=== PATIENT | female | born 1980 | race Caucasian/White ===

== ENCOUNTER 2018-11-18 16:53 | Outpatient (CLI) | payer BC ==
[2018-11-18] VITALS (30 sets, daily range): BP systolic 140–190; BP diastolic 73–105; PULSE 76–100; TEMP 99
[~2018-11-18] VITALS: Ht 165.1 cm; Wt 109.1 kg
--- NOTE | 2018-11-18 17:00 | NUR ---
Patient presents to unit with complaints of elevated blood pressure and severe neck pain, denies any visual changes, epigastric pain or upper right quadrant pain, denies leaking of fluid or bleeding. Patient denies contractions. Drinking apporpriately and eating meals. Patient assesment completed, vitals obtained, and placed on monitors. notified of paitnet arrival and orders recived. Lab at bedside to obtain draws. Will monitor with serial blood pressures and notify. 1730- Blood pressure readings noted with and reviewed. Update on neck pain isssues, new orders recieved. Will continue to monitor. Flexeril 10mg given as ordered at 1740. 1800- Labs reviewed with Dr. Chavarria, updated on current blood pressure readindgs and rating of pain level by patient. New orders recived for percocet 1 time dose of 5mg. And one dose of 100mg labetlol given now with script sent to pharmacy reported. Patient updated on plan of care and agreeable. Will continue to monitorl 1814-Report given to CHARLES Dailey to continue to monitor post medication administration.
[2018-11-18] MEDS ORDERED: NEXIUM 40MG40 MG PO (17:19)
[2018-11-18] MEDS ORDERED: PRENATAL MVI (17:20)
[2018-11-18 17:35] LABS: HEMATOCRIT 37.8 % (37.0-47.0); HEMOGLOBIN 12.8 g/dl (12.5-16.0); MEAN CELL VOLUME 93 fl (80.0-100.0); MEAN CORPUSCULAR HEMOGLOBIN 32 pg (27.0-31.0); MEAN CORPUSCULAR HGB CONC 34 g/dl (33.0-37.0); MEAN PLATELET VOLUME 10.8 fl (7.4-10.4); PLATELET COUNT 180 K/mm3 (130-400); RED BLOOD COUNT 4.06 M/mm3 (4.10-5.30); REDCELL DISTRIBUTION WIDTH-CV 12.5 % (11.5-14.5)
[2018-11-18 17:58] LABS: ALBUMIN 2.9 gm/dL (3.5-5.0); BILIRUBIN,TOTAL 0.2 mg/dL (0.0-1.0); CALCIUM 9.4 mg/dL (8.4-10.2); CREATININE, serum 0.74 (0.52-1.25)
--- NOTE | 2018-11-18 20:00 | NUR ---
1829- Report from CHARLES Self. Patient here with complaints of neck pain and high blood pressures at home. See eMAR for medications given. Patient still complains of intense neck pain and BP currently 178/84. aware of increased BP. Orders to discharge in 1 hour if BP stable and pain is decreased. Rx for Labetalol 100mg BID sent to [facility] by CHARLES Self. RN's at bedside to reposition patient to RL and then WR. FHR difficult to trace due to maternal position and size. BP remains 170/100's at this time. 1854- See Physician Notification. 1899- Labetalol 100mg x1 given. See eMAR. 1929- Patient reports neck pain is lessening and she is feeling more comfortable. 1949- See Physician Notification. 1954- Procardia XL 30mg x1 given. See eMAR. 1999- Patient states her neck pain in more controlled. 2017- See Physician Notification. Discharge orders given to CHARLES Rahman. 2029- Discharge instructions discussed at length with patient and spouse. Instructed them to pick and shovel man Rx for Labetalol from pharmacy and to follow up in the office for BP check on Thursday. Questions asked and answered. Patient to call with any questions and/or concerns. 2044- Patient and spouse ambulatory off unit.
[2018-11-18] MEDS ORDERED: TRANDATE 100MG100 MG PO (20:27)
== END 2018-11-18 20:45 | disposition home or self-care (01) ==
LOC: LDRO 16:53 → LDR 16:54 → LDRO 20:45
PROVIDERS: Obstetrics & Gynecology
DX: O99.413 Diseases of the circulatory system complicating pregnancy, third trimester (principal); Z3A.37 37 weeks gestation of pregnancy
CPT/HCPCS: OP

== ENCOUNTER 2018-11-22 15:42 | Inpatient (IN) | payer BC ==
[~2018-11-22] VITALS: Ht 170.2 cm; Wt 109.1 kg
[~2018-11-22 15:42] MED LIST: NEXIUM 40MG40 MG PO; PRENATAL MVI; TRANDATE 100MG100 MG PO
[2018-11-22 20:45] VITALS: BP 181/104; PULSE 102; TEMP 98.1
[2018-11-22 21:00] VITALS: BP 176/94; PULSE 94
[2018-11-22 22:00] VITALS: BP 160/90; PULSE 91
--- NOTE | 2018-11-22 22:00 | NUR ---
2157- PROCARDIA XL 60MG PO GIVEN AT THIS TIME PER DR. MUHAMMAD'S ORDERS.
[2018-11-22 22:07] LABS: BASO % 0.3 % (0.0-2.0); EOS # 0.1 (0.0-0.7); EOS % 0.7 % (0-4.0); GRAN # 6.8 (1.4-6.5); GRAN % 75.5 % (42.2-75.2); HEMOGLOBIN 12.5 g/dl (12.5-16.0); LYMPH # 1.6 (1.2-3.4); LYMPH % 17.5 % (20.0-51.0); MEAN CELL VOLUME 94 fl (80.0-100.0); MEAN CORPUSCULAR HEMOGLOBIN 32 pg (27.0-31.0); MEAN CORPUSCULAR HGB CONC 34 g/dl (33.0-37.0); MEAN PLATELET VOLUME 11.1 fl (7.4-10.4); MONO # 0.5 (0.1-0.6); MONO % 5.6 % (1.7-9.3); PLATELET COUNT 194 K/mm3 (130-400); RED BLOOD COUNT 3.94 M/mm3 (4.10-5.30); REDCELL DISTRIBUTION WIDTH-CV 12.5 % (11.5-14.5)
[2018-11-22 22:30] VITALS: BP 163/99; PULSE 87
[2018-11-22 23:00] VITALS: BP 163/91; PULSE 90
[2018-11-22 23:30] VITALS: BP 140/74; PULSE 85
[2018-11-23] VITALS (51 sets, daily range): BP systolic 127–190; BP diastolic 64–113; PULSE 79–104; TEMP 98–98.6
--- NOTE | 2018-11-23 06:15 | NUR ---
RECIEVED REPORT FROM CHARLES SALAZAR. PATIENT RESTING IN BED. PATIENT NOT FEELING CONTRACTIONS
--- NOTE | 2018-11-23 14:35 | NUR ---
DR DHALIWAL INJECTED 30 MLS 2% LIDOCAINE IN PATIENTS ABDOMEN PRIOR TO INCISION.
--- NOTE | 2018-11-23 19:00 | NUR ---
1899 PERICARE DONE. MOVES WELL IN BED. VOICES NO C/O DISCOMFORT AT THIS TIME
--- NOTE | 2018-11-23 20:00 | NUR ---
2000 REGULAR DIET TAKEN. IV FLUIDS ALL INFUSED AND TO INT.
[2018-11-24 00:01] VITALS: BP 144/91; PULSE 94; TEMP 98.9
[2018-11-24 05:00] VITALS: BP 119/72; PULSE 101; TEMP 98.7
[2018-11-24 07:05] VITALS: BP 139/83; PULSE 113; TEMP 98.1
--- NOTE | 2018-11-24 10:39 | NUR ---
Initial visit; Parents resting, Establishment Guide left card of congratulaions and information regarding the availability of spiritual care at [facility].
[2018-11-24 17:39] VITALS: BP 145/89; PULSE 106
[2018-11-24 21:15] VITALS: BP 155/91; PULSE 109; TEMP 98.2
[2018-11-24 23:50] VITALS: BP 159/90; PULSE 100; TEMP 98.5
[2018-11-25] VITALS (8 sets, daily range): BP systolic 128–153; BP diastolic 84–107; PULSE 102–114; TEMP 97.7–100.6
[2018-11-25 02:49] LABS: BASO % 0.3 % (0.0-2.0); EOS # 0.1 (0.0-0.7); EOS % 0.6 % (0-4.0); GRAN # 8.4 (1.4-6.5); GRAN % 78.9 % (42.2-75.2); HEMOGLOBIN 11.4 g/dl (12.5-16.0); LYMPH # 1.5 (1.2-3.4); LYMPH % 14.3 % (20.0-51.0); MEAN CELL VOLUME 93 fl (80.0-100.0); MEAN CORPUSCULAR HEMOGLOBIN 32 pg (27.0-31.0); MEAN CORPUSCULAR HGB CONC 34 g/dl (33.0-37.0); MEAN PLATELET VOLUME 10.3 fl (7.4-10.4); MONO # 0.6 (0.1-0.6); MONO % 5.5 % (1.7-9.3); PLATELET COUNT 137 K/mm3 (130-400); RED BLOOD COUNT 3.59 M/mm3 (4.10-5.30); REDCELL DISTRIBUTION WIDTH-CV 12.9 % (11.5-14.5)
[2018-11-25 02:50] LABS: HEMATOCRIT 33.2 % (37.0-47.0)
[2018-11-25 03:13] LABS: COLLECTION METHOD CLEAN CATCH
[2018-11-25 03:22] LABS: MUCOUS Present /lpf; PH 5 (5-8); SQUAMOUS EPITHELIAL 0-2 /hpf; URINE APPEARANCE Clear; URINE BACTERIA None Seen /hpf; URINE BILIRUBIN Negative (NEGATIVE); URINE BLOOD 1+ (NEGATIVE); URINE COLOR Straw; URINE GLUCOSE Negative (NEGATIVE); URINE KETONE Negative (NEGATIVE); URINE LEUKOCYTE ESTERASE Negative (NEGATIVE); URINE NITRATE Negative (NEGATIVE); URINE PROTEIN(semi-quant) 2+ (NEGATIVE); URINE UROBILINOGEN Negative (NEGATIVE); URINE WBC 0-2 /hpf
[2018-11-26 07:55] VITALS: BP 151/96; PULSE 107; TEMP 97.7
[2018-11-26] MEDS ORDERED: MOTRIN 800800 MG/TAB PO (08:16)
[2018-11-26] MEDS ORDERED: PERCOCET 325 MG1 TA2 PO (08:16)
[2018-11-26] MEDS ORDERED: PROCARDIA XL 6060 MG PO (08:16)
[2018-11-26 17:35] VITALS: BP 148/94; PULSE 108; TEMP 98.6
[2018-11-26 19:20] VITALS: BP 149/92; PULSE 106; TEMP 98.5
[2018-11-27 07:15] VITALS: BP 132/83; PULSE 108; TEMP 97.8
--- NOTE | 2018-11-27 19:00 | NUR ---
1899- Discharge instructions reviewed with pt and at the bedside. We discussed self care, follow up appointments and precautions. Both verbalized an understanding, agreed with the plan and state no questions or concerns at this time. 1934- Pt discharged home ambulatory, escorted by and staff with secured in carseat.
== END 2018-11-27 19:35 | disposition home or self-care (01) | DRG 788 ==
LOC: LDR 15:42 → OB 11-23 16:00
PROVIDERS: Obstetrics & Gynecology; ADMIT Obstetrics & Gynecology
PROC: 10D00Z1 Extraction of Products of Conception, Low, Open Approach (ICD-10-PCS; principal; 2018-11-23)
PROC: 3E0P7GC Introduction of Other Therapeutic Substance into Female Reproductive, Via Natural or Artificial Opening (ICD-10-PCS; 2018-11-23)
PROC: 3E033VJ Introduction of Other Hormone into Peripheral Vein, Percutaneous Approach (ICD-10-PCS; 2018-11-23)
DX: O13.3 Gestational [pregnancy-induced] hypertension without significant proteinuria, third trimester (principal); Z37.0 Single live birth; O99.613 Diseases of the digestive system complicating pregnancy, third trimester; K21.9 Gastro-esophageal reflux disease without esophagitis; O76 Abnormality in fetal heart rate and rhythm complicating labor and delivery; O42.92 Full-term premature rupture of membranes, unspecified as to length of time between rupture and onset of labor; Z3A.37 37 weeks gestation of pregnancy
CPT/HCPCS: J0360; J0690; J1885; J2270; J2405; J2550; J2590; J3010; J7120